=== PATIENT | male | born 1955 | race Hispanic/Latino ===

== ENCOUNTER 2021-11-22 18:19 | Inpatient (IN) | payer OTHER ==
[~2021-11-22] VITALS: Ht 172.7 cm; Wt 92.9 kg
[2021-11-22] MEDS ORDERED: [UNRECOGNIZED DRUG - OTHER] IV ONE (18:30)
[2021-11-22 18:46] LABS: APPEARANCE,URINE Cloudy (CLEAR); BILIRUBIN,URINE Small (NEGATIVE); COLOR,URINE Dark Yellow (YELLOW); GLUCOSE, URINE (UA) Negative (NEGATIVE); KETONES,URINE Trace mg/dL (NEGATIVE); LEUKOCYTE ESTERASE ,URINE Trace (NEGATIVE); NITRATE,URINE Negative (NEGATIVE); OCCULT BLOOD,URINE Negative (NEGATIVE); PH,URINE 5.5 (5.0-8.0); PROTEIN,URINE POS 2+ mg/dL (NEGATIVE)
[2021-11-22] MEDS ORDERED: VANCOMYCIN 1G VIAL IVPB ONE (19:00)
[2021-11-22] MEDS ORDERED: CEFTRIAXONE 1G VIAL IVP ONE (19:00)
[2021-11-22 19:01] LABS: BASOPHILS % (AUTO) 0.2 % (0.0-5.0); EOSINOPHILS % (AUTO) 0.2 % (0.0-8.0); LYMPHOCYTES % (AUTO) 4.8 % (21.0-51.0); MEAN CORPUSCULAR HEMOGLOBIN 30.8 pg (27.0-33.0); MEAN CORPUSCULAR HGB CONC 33.4 g/dL (32.0-36.0); MEAN CORPUSCULAR VOLUME 92.2 fL (79-99); MONOCYTES % (AUTO) 3.5 % (3.0-13.0); NEUTROPHILS % (AUTO) 88.3 % (40.0-77.0); PLATELET COUNT (AUTO) 131 K/uL (130-400); RED BLOOD CELL COUNT(AUTO) 4.12 MIL/uL (4.50-6.20); RED CELL DISTRIBUTION WIDTH 12.5 % (11.0-15.5); WHITE BLOOD COUNT (AUTO) 4.3 K/uL (4.8-10.8)
[2021-11-22] MEDS ORDERED: 0.9%NACL 1000ML 2,000 ML IV ONE (19:17)
[2021-11-22] MEDS ORDERED: 0.9%NACL 1000ML 1,000 ML IV ONE (19:18)
[2021-11-22 19:19] LABS: BACTERIA,URINE Few /HPF (None Seen); RBC,URINE 0-1 /HPF (0-1)
[2021-11-22 19:20] LABS: SQUAMOUS EPITHELIAL CELL,UR Few /HPF (0-2)
[2021-11-22 19:21] LABS: MUCUS,URINE Rare LPF (None Seen); OTHER CASTS, URINE WBC CASTS 1+ /LPF (None Seen)
[2021-11-22 19:28] LABS: B-TYPE NATRIURETIC PEPTIDE 82 pg/mL (0-100)
[2021-11-22 19:30] LABS: ALBUMIN 2.2 g/dL (3.5-5.0); BILIRUBIN,TOTAL 0.5 mg/dL (0.2-1.0); CREATININE 1.8 mg/dL (0.5-1.5); TOTAL PROTEIN, SERUM 6.1 g/dL (6.0-8.3)
[2021-11-22] MEDS ORDERED: ACETAMINOPHEN 500 MG TABLET PO ONE (19:30)
[2021-11-22 19:31] LABS: POTASSIUM 2.9 mmol/L (3.5-5.1)
[2021-11-22] MEDS ORDERED: CEFTRIAXONE 1G VIAL ONE (19:47)
[2021-11-22] MEDS ORDERED: VANCOMYCIN 1G/250ML KIT 0 ML IV ONE (19:47)
[2021-11-22] MEDS ORDERED: POTASSIUM BICARB/CIT AC 25 MEQ TABLET.EFF ONE (19:47)
[2021-11-22] MEDS ORDERED: 0.9% NACL 250ML 250 ML ONE (19:48)
[2021-11-22] MEDS ORDERED: ZOSYN 3.375GM+NS 50ML 50 ML ONE (19:56)
[2021-11-22] MEDS ORDERED: ACETAMINOPHEN 500 MG TABLET ONE (19:57)
[2021-11-22] MEDS ORDERED: MIDODRINE HCL 5 MG TABLET ONE (19:57)
[2021-11-22] MEDS ORDERED: MIDODRINE HCL 5 MG TABLET PO SCH (20:00)
[2021-11-22] MEDS ORDERED: ZOSYN 3.375GM +NS 50ML IV SCH (20:00)
[2021-11-22] MEDS ORDERED: POTASSIUM BICARB/CIT AC 25 MEQ TABLET.EFF PO ONE (20:00)
[2021-11-22] MEDS ORDERED: NOREPINEPHRIN 4MG/NS 250ML 250 ML IV SCH (22:00)
[2021-11-22] MEDS ORDERED: VANCOMYCIN 1G/250ML KIT 250 ML IV ONE (22:26)
[2021-11-23] VITALS (7 sets, daily range): BP systolic 111–149; BP diastolic 68–87
[2021-11-23] MEDS ORDERED: VANCOMYCIN PROTOCOL PER PHARMACY IV SCH
[2021-11-23] MEDS ORDERED: ZOSYN 3.375GM +NS 50ML IV SCH
[2021-11-23] MEDS: 0.9%NACL 1000ML 1,000 ML IV SCH ×4 (00:14→17:45)
[2021-11-23] MEDS ORDERED: IOHEXOL 350 MG/ML 100ML INFUS..BTL IV ONE ×2 (03:33→18:27)
[2021-11-23 05:16] LABS: BASOPHILS % (AUTO) 0.6 % (0.0-5.0); HEMATOCRIT 36.3 % (42-54); MEAN CORPUSCULAR HGB CONC 34.4 g/dL (32.0-36.0); MEAN CORPUSCULAR VOLUME 92.8 fL (79-99); MONOCYTES % (AUTO) 11.4 % (3.0-13.0); NEUTROPHILS % (AUTO) 78.7 % (40.0-77.0); PLATELET COUNT (AUTO) 135 K/uL (130-400); RED BLOOD CELL COUNT(AUTO) 3.91 MIL/uL (4.50-6.20); RED CELL DISTRIBUTION WIDTH 12.8 % (11.0-15.5)
[2021-11-23 05:29] LABS: ALBUMIN 1.8 g/dL (3.5-5.0); BILIRUBIN,TOTAL 0.6 mg/dL (0.2-1.0); CREATININE 1.3 mg/dL (0.5-1.5); MAGNESIUM 1.4 mg/dL (1.80-2.40); PHOSPHORUS 2.1 mg/dL (2.5-4.9); POTASSIUM 3.1 mmol/L (3.5-5.1); TOTAL PROTEIN, SERUM 5.7 g/dL (6.0-8.3)
[2021-11-23 05:41] LABS: CRP QUANTITATIVE 250.7 mg/L (0.00-9.0)
[2021-11-23] MEDS ORDERED: POTASSIUM BICARB/CIT AC 25 MEQ TABLET.EFF ONE (06:19)
[2021-11-23] MEDS ORDERED: MAGNESIUM 2GM PREMIX 50ML 50 ML IV ONE (06:27)
[2021-11-23] MEDS ORDERED: LIDOCAINE HCL-MPF 1% 2ML VIAL IV PRN ×2 (06:30)
[2021-11-23] MEDS ORDERED: POTASSIUM CHLORIDE 10% ELIXIR 20 MEQ/15 ML UDCUP PO PRN (06:30)
[2021-11-23] MEDS ORDERED: MAGNESIUM 2GM PREMIX 50ML 50 ML IV PRN (06:30)
[2021-11-23] MEDS ORDERED: POTASSIUM CHLORIDE 20MEQ/100ML 100 ML IV PRN (06:30)
[2021-11-23] MEDS ORDERED: POTASSIUM BICARB/CIT AC 25 MEQ TABLET.EFF PO ONE (06:30)
[2021-11-23] MEDS: ZOSYN 3.375GM +NS 50ML IV SCH ×2 (06:57→12:35)
[2021-11-23 07:06] LABS: ERYTHROCYTE SEDIMENTATION RATE 50 MM/HR (0-20)
[2021-11-23] MEDS: VANCOMYCIN 750MG VIAL IVPB SCH ×2 (08:00→21:37)
[2021-11-23] MEDS ORDERED: 0.9% NACL 250ML 250 ML IV SCH (08:00)
[2021-11-23] MEDS ORDERED: MIDODRINE HCL 5 MG TABLET PO SCH (11:30)
[2021-11-23 17:31] LABS: BASOPHILS % (AUTO) 0.9 % (0.0-5.0); HEMATOCRIT 37.8 % (42-54); LYMPHOCYTES % (AUTO) 9.6 % (21.0-51.0); MEAN CORPUSCULAR HEMOGLOBIN 31.6 pg (27.0-33.0); MEAN CORPUSCULAR HGB CONC 34.4 g/dL (32.0-36.0); MEAN CORPUSCULAR VOLUME 91.7 fL (79-99); MONOCYTES % (AUTO) 7.2 % (3.0-13.0); NEUTROPHILS % (AUTO) 81.7 % (40.0-77.0); PLATELET COUNT (AUTO) 124 K/uL (130-400); RED BLOOD CELL COUNT(AUTO) 4.12 MIL/uL (4.50-6.20); RED CELL DISTRIBUTION WIDTH 12.9 % (11.0-15.5); WHITE BLOOD COUNT (AUTO) 5.4 K/uL (4.8-10.8)
[2021-11-23 17:41] LABS: CREATININE 0.8 mg/dL (0.5-1.5); POTASSIUM 3.1 mmol/L (3.5-5.1)
[2021-11-23 17:46] LABS: ALBUMIN 1.7 g/dL (3.5-5.0); BILIRUBIN,TOTAL 0.7 mg/dL (0.2-1.0); MAGNESIUM 2.2 mg/dL (1.80-2.40); TOTAL PROTEIN, SERUM 5.6 g/dL (6.0-8.3)
[2021-11-23] MEDS: POTASSIUM CHLORIDE 20MEQ/100ML 100 ML IV PRN (19:09)
[2021-11-23] MEDS ORDERED: 0.9%NACL 100ML 100 ML ONE (20:14)
[2021-11-23] MEDS: MEROPENEM 1 GM VIAL IVP SCH (20:18)
[2021-11-23] MEDS ORDERED: ONDANSETRON 4MG INJ IVP PRN (20:30)
[2021-11-23] MEDS: ACETAMINOPHEN 325 MG TAB PO PRN (20:35)
[2021-11-24] VITALS (20 sets, daily range): BP systolic 92–174; BP diastolic 47–110
[2021-11-24] MEDS: 0.9%NACL 1000ML 1,000 ML IV SCH ×2 (00:36→14:45)
[2021-11-24] MEDS: MEROPENEM 1 GM VIAL IVP SCH ×3 (03:03→20:58)
[2021-11-24 07:42] LABS: BASOPHILS % (AUTO) 0.6 % (0.0-5.0); HEMATOCRIT 34.5 % (42-54); MEAN CORPUSCULAR HEMOGLOBIN 30.9 pg (27.0-33.0); MEAN CORPUSCULAR HGB CONC 33.6 g/dL (32.0-36.0); MEAN CORPUSCULAR VOLUME 91.8 fL (79-99); MONOCYTES % (AUTO) 5.2 % (3.0-13.0); NEUTROPHILS % (AUTO) 80.9 % (40.0-77.0); PLATELET COUNT (AUTO) 128 K/uL (130-400); RED BLOOD CELL COUNT(AUTO) 3.76 MIL/uL (4.50-6.20); WHITE BLOOD COUNT (AUTO) 6.8 K/uL (4.8-10.8)
[2021-11-24 08:12] LABS: ALBUMIN 1.6 g/dL (3.5-5.0); BILIRUBIN,TOTAL 0.8 mg/dL (0.2-1.0); CREATININE 0.6 mg/dL (0.5-1.5); TOTAL PROTEIN, SERUM 5.5 g/dL (6.0-8.3)
[2021-11-24 08:33] LABS: POTASSIUM 2.6 mmol/L (3.5-5.1)
[2021-11-24] MEDS: POTASSIUM CHLORIDE 20MEQ/100ML 100 ML IV PRN (08:37)
[2021-11-24] MEDS ORDERED: 0.9% NACL 250ML 250 ML IV SCH (09:00)
[2021-11-24] MEDS: VANCOMYCIN 750MG VIAL IVPB SCH ×2 (09:07→16:43)
[2021-11-24] MEDS: ACETAMINOPHEN 325 MG TAB PO PRN (09:47)
[2021-11-24] MEDS ORDERED: ACETAMINOPHEN 325 MG TAB PO PRN (10:00)
[2021-11-24] MEDS ORDERED: ONDANSETRON 4MG INJ IVP PRN (11:00)
[2021-11-24] MEDS: KCL 20 MEQ ERTAB PO PRN ×3 (11:13→16:42)
[2021-11-24] MEDS ORDERED: POTASSIUM CHLORIDE 10% ELIXIR 20 MEQ/15 ML UDCUP PO ONE (12:30)
[2021-11-25] VITALS: BP 138/73
[2021-11-25] MEDS: VANCOMYCIN 750MG VIAL IVPB SCH ×2 (01:01→08:44)
[2021-11-25 04:00] VITALS: BP 149/91
[2021-11-25] MEDS: MEROPENEM 1 GM VIAL IVP SCH ×2 (04:05→12:24)
[2021-11-25 04:34] LABS: HEMATOCRIT 31.9 % (42-54); MEAN CORPUSCULAR HGB CONC 35.7 g/dL (32.0-36.0); MEAN CORPUSCULAR VOLUME 89.6 fL (79-99); RED BLOOD CELL COUNT(AUTO) 3.56 MIL/uL (4.50-6.20); RED CELL DISTRIBUTION WIDTH 13.1 % (11.0-15.5); WHITE BLOOD COUNT (AUTO) 6.9 K/uL (4.8-10.8)
[2021-11-25 04:55] LABS: CREATININE 0.6 mg/dL (0.5-1.5)
[2021-11-25 05:10] LABS: POTASSIUM 2.8 mmol/L (3.5-5.1)
[2021-11-25] MEDS: KCL 20 MEQ ERTAB PO PRN ×4 (05:16→21:17)
[2021-11-25 07:00] VITALS: BP 149/94
[2021-11-25] MEDS: VANCOMYCIN 1.25 GM/250 ML BAG 250 ML IV SCH ×2 (09:00→21:00)
[2021-11-25 12:00] VITALS: BP 158/99
[2021-11-25] MEDS: 0.9%NACL 1000ML 1,000 ML IV SCH (12:25)
[2021-11-25] MEDS: HYDROMORPHONE 0.5 MG SYG (0.5MG/0.5ML) IVP PRN (15:24)
[2021-11-25 15:30] VITALS: BP 163/95
[2021-11-25] MEDS ORDERED: KETOROLAC 15MG/ML VIAL (15MG/ML) IV ONE (17:30)
[2021-11-25 18:32] LABS: CREATININE 0.4 mg/dL (0.5-1.5); POTASSIUM 3.2 mmol/L (3.5-5.1)
[2021-11-25] MEDS ORDERED: KETOROLAC 15MG/ML VIAL (15MG/ML) ONE (20:46)
[2021-11-25 21:40] VITALS: BP 161/98
[2021-11-26] MEDS: KCL 20 MEQ ERTAB PO PRN ×2 (00:14→03:31)
[2021-11-26] MEDS: HYDROMORPHONE 0.5 MG SYG (0.5MG/0.5ML) IVP PRN ×2 (00:15→11:21)
[2021-11-26 00:27] VITALS: BP 153/80
[2021-11-26] MEDS: 0.9%NACL 1000ML 1,000 ML IV SCH (01:20)
[2021-11-26 05:23] VITALS: BP 148/81
[2021-11-26 05:46] LABS: HEMATOCRIT 35.5 % (42-54); MEAN CORPUSCULAR HEMOGLOBIN 31.9 pg (27.0-33.0); MEAN CORPUSCULAR HGB CONC 35.5 g/dL (32.0-36.0); MEAN CORPUSCULAR VOLUME 89.9 fL (79-99); RED BLOOD CELL COUNT(AUTO) 3.95 MIL/uL (4.50-6.20); RED CELL DISTRIBUTION WIDTH 13.1 % (11.0-15.5); WHITE BLOOD COUNT (AUTO) 8.8 K/uL (4.8-10.8)
[2021-11-26 06:00] LABS: CREATININE 0.5 mg/dL (0.5-1.5); POTASSIUM 3.4 mmol/L (3.5-5.1)
[2021-11-26 08:00] VITALS: BP 164/97
[2021-11-26] MEDS ORDERED: ARTIFICAL TEARS SOL 15 ML OU PRN (08:30)
[2021-11-26] MEDS: VANCOMYCIN 1.25 GM/250 ML BAG 250 ML IV SCH (09:32)
[2021-11-26 12:00] VITALS: BP 143/86
[2021-11-26 16:00] VITALS: BP 143/86
== END 2021-11-26 17:40 | disposition short-term general hospital (02) | DRG 559 ==
LOC: EDH 18:19 → EDHIP 11-23 17:18 → 2CH 11-23 21:57 → 2DH 11-25 10:06 → 3AH 11-25 16:03
PROVIDERS: ADMIT Internal Medicine; ATTEND Internal Medicine
DX: T84.59XA Infection and inflammatory reaction due to other internal joint prosthesis, initial encounter (principal); A41.02 Sepsis due to Methicillin resistant Staphylococcus aureus; E43 Unspecified severe protein-calorie malnutrition; R65.21 Severe sepsis with septic shock; N39.0 Urinary tract infection, site not specified; G82.20 Paraplegia, unspecified; N17.9 Acute kidney failure, unspecified; K81.0 Acute cholecystitis; L02.416 Cutaneous abscess of left lower limb; Z20.822 Contact with and (suspected) exposure to COVID-19; E87.6 Hypokalemia; E86.0 Dehydration; E83.42 Hypomagnesemia; Z96.642 Presence of left artificial hip joint; G89.4 Chronic pain syndrome; M19.90 Unspecified osteoarthritis, unspecified site; Y83.8 Other surgical procedures as the cause of abnormal reaction of the patient, or of later complication, without mention of misadventure at the time of the procedure; E66.9 Obesity, unspecified; K59.00 Constipation, unspecified; Z74.01 Bed confinement status; Z68.31 Body mass index [BMI] 31.0-31.9, adult; Y92.89 Other specified places as the place of occurrence of the external cause
CPT/HCPCS: 36415; 51702; 71045; 71275; 73702; 74176; 74177; 76705; 80048; 80053; 80202; 81001; 82550; 82948; 83605; 83735; 83880; 84100; 84145; 84484; 85025; 85027; 85378; 85651; 86140; 87040; 87077; 87088; 87186; 87635; 87804; 87880; 93005; 99291; C9803; G0378; J0696; J1170; J1885; J2185; J2405; J2543; J3370; J3475; J3480; J3490; J7030; J7050; Q9967

== ENCOUNTER 2023-10-08 23:10 | Emergency (ER) | payer OTHER ==
[~2023-10-08] VITALS: Ht 172.7 cm; Wt 95.3 kg
[~2023-10-08 23:10] MED LIST: CEPH500B PO; PHEN-847 PO
[2023-10-08 23:11] VITALS: O2SAT 96
[2023-10-08 23:12] VITALS: BP 136/67; PULSE 82; RESP 16
== END 2023-10-09 02:00 | disposition home or self-care (01) ==
LOC: EDH 23:10
DX: T83.018A Breakdown (mechanical) of other urinary catheter, initial encounter (principal); Z79.899 Other long term (current) drug therapy; Z98.890 Other specified postprocedural states
CPT/HCPCS: 51702; 93005

== ENCOUNTER 2023-11-07 09:19 | Emergency (ER) | payer OTHER ==
[~2023-11-07] VITALS: Ht 170.2 cm; Wt 90.7 kg
[2023-11-07] MEDS: 0.9%NACL 1000ML 1,000 ML IV ONE (10:36)
[2023-11-07 11:02] LABS: APPEARANCE,URINE CLOUDY (CLEAR); BILIRUBIN,URINE NEGATIVE (NEGATIVE); COLOR,URINE YELLOW (YELLOW); GLUCOSE, URINE (UA) NEGATIVE (NEGATIVE); KETONES,URINE NEGATIVE (NEGATIVE); LEUKOCYTE ESTERASE ,URINE 500 Leu/uL (NEGATIVE); NITRATE,URINE 2+ (NEGATIVE); OCCULT BLOOD,URINE MODERATE (NEGATIVE); PH,URINE 5.5 (5.0-8.0); PROTEIN,URINE 20 mg/dL (NEGATIVE); UROBILINOGEN,URINE 0.2 mg/dL (0.2-1.0)
[2023-11-07 11:12] LABS: BASOPHILS # (AUTO) 0.04 K/uL (0.00-0.20); BASOPHILS % (AUTO) 0.6 % (0.0-5.0); EOSINOPHILS # (AUTO) 0.25 K/uL (0.00-0.70); EOSINOPHILS % (AUTO) 3.5 % (0.0-8.0); HEMATOCRIT 42.1 % (42-54); IMMATURE GRANULOCYTE ABSOLUTE 0.04 K/uL (0-1); LYMPHOCYTES # (AUTO) 2.6 K/uL (1.0-4.8); LYMPHOCYTES % (AUTO) 36.7 % (21.0-51.0); MEAN CORPUSCULAR HEMOGLOBIN 30.9 pg (27.0-33.0); MEAN CORPUSCULAR HGB CONC 33.5 g/dL (32.0-36.0); MEAN CORPUSCULAR VOLUME 92.1 fL (79-99); MONOCYTES # (AUTO) 0.5 K/uL (0.1-1.0); MONOCYTES % (AUTO) 7.6 % (3.0-13.0); NEUTROPHILS # (AUTO) 3.6 K/uL (1.8-7.7); PLATELET COUNT (AUTO) 211 K/uL (130-400); RED BLOOD CELL COUNT(AUTO) 4.57 MIL/uL (4.50-6.20); RED CELL DISTRIBUTION WIDTH 14.1 % (11.0-15.5); WHITE BLOOD COUNT (AUTO) 7.1 K/uL (4.8-10.8)
[2023-11-07 11:19] LABS: CREATININE 0.8 mg/dL (0.5-1.3); POTASSIUM 4.4 mmol/L (3.5-5.1)
[2023-11-07 11:20] LABS: ADD UA MICROSCOPIC YES
[2023-11-07 11:24] LABS: ALBUMIN 3.1 g/dL (3.5-5.0); BILIRUBIN,TOTAL 0.3 mg/dL (0.2-1.0); TOTAL PROTEIN, SERUM 7.6 g/dL (6.0-8.3)
[2023-11-07 11:25] LABS: BACTERIA,URINE MOD /HPF (None Seen); MUCUS,URINE RARE LPF (None Seen); RBC,URINE 26-50 /HPF (0-1); WBC,URINE TNTC /HPF (0-1)
[2023-11-07] MEDS: CEFTRIAXONE 1G VIAL IVPB ONE (12:02)
[2023-11-07 12:04] VITALS: BP 138/83; PULSE 88; RESP 16; O2SAT 95
[2023-11-07] MEDS ORDERED: LEVO750T68 PO (12:34)
== END 2023-11-07 13:37 | disposition home or self-care (01) ==
LOC: EDH 09:19
DX: T83.091A Other mechanical complication of indwelling urethral catheter, initial encounter (principal); N39.0 Urinary tract infection, site not specified; Y82.9 Unspecified medical devices associated with adverse incidents; Y92.89 Other specified places as the place of occurrence of the external cause
CPT/HCPCS: 99285; 96365; 76705; 96361; 80053; 85025; 87077; 87088; 87186; 81001; 36415; J7030; J0696

== ENCOUNTER 2023-11-29 15:58 | Emergency (ER) | payer OTHER ==
[~2023-11-29] VITALS: Ht 172.7 cm; Wt 90.7 kg
[~2023-11-29 15:58] MED LIST changes: -CEPH500B PO; +LEVO750T68 PO; -PHEN-847 PO
[2023-11-29 16:49] VITALS: BP 107/65; PULSE 76; RESP 19; O2SAT 95
[2023-11-29 17:09] LABS: BASOPHILS # (AUTO) 0.03 K/uL (0.00-0.20); BASOPHILS % (AUTO) 0.5 % (0.0-5.0); EOSINOPHILS # (AUTO) 0.24 K/uL (0.00-0.70); EOSINOPHILS % (AUTO) 4.2 % (0.0-8.0); HEMATOCRIT 43.5 % (42-54); IMMATURE GRANULOCYTE ABSOLUTE 0.02 K/uL (0-1); LYMPHOCYTES # (AUTO) 2.5 K/uL (1.0-4.8); LYMPHOCYTES % (AUTO) 43.3 % (21.0-51.0); MEAN CORPUSCULAR HGB CONC 33.3 g/dL (32.0-36.0); MONOCYTES # (AUTO) 0.5 K/uL (0.1-1.0); MONOCYTES % (AUTO) 8.9 % (3.0-13.0); NEUTROPHILS # (AUTO) 2.4 K/uL (1.8-7.7); NEUTROPHILS % (AUTO) 42.7 % (40.0-77.0); PLATELET COUNT (AUTO) 167 K/uL (130-400); RED BLOOD CELL COUNT(AUTO) 4.53 MIL/uL (4.50-6.20); RED CELL DISTRIBUTION WIDTH 13.7 % (11.0-15.5); WHITE BLOOD COUNT (AUTO) 5.7 K/uL (4.8-10.8)
[2023-11-29 17:22] LABS: CREATININE 0.9 mg/dL (0.5-1.3); POTASSIUM 4.2 mmol/L (3.5-5.1)
[2023-11-29] MEDS ORDERED: CEPH500B PO (17:27)
[2023-11-29] MEDS: ONDANSETRON 4MG INJ ONE (17:29)
[2023-11-29] MEDS: ONDANSETRON 4MG INJ IVP ONE (17:29)
[2023-11-29] MEDS: 0.9%NACL 1000ML 1,000 ML IV ONE (17:29)
[2023-11-29] MEDS: CEFTRIAXONE 2GM VIAL IVPB ONE (17:29)
[2023-11-29 17:35] LABS: ADD UA MICROSCOPIC YES; APPEARANCE,URINE CLOUDY (CLEAR); BILIRUBIN,URINE NEGATIVE (NEGATIVE); COLOR,URINE YELLOW (YELLOW); GLUCOSE, URINE (UA) NEGATIVE (NEGATIVE); KETONES,URINE NEGATIVE (NEGATIVE); LEUKOCYTE ESTERASE ,URINE 500 Leu/uL (NEGATIVE); NITRATE,URINE NEGATIVE (NEGATIVE); OCCULT BLOOD,URINE LARGE (NEGATIVE); PH,URINE 5.5 (5.0-8.0); PROTEIN,URINE 70 mg/dL (NEGATIVE); UROBILINOGEN,URINE 0.2 mg/dL (0.2-1.0)
[2023-11-29 17:39] LABS: BACTERIA,URINE MOD /HPF (None Seen); MUCUS,URINE RARE LPF (None Seen); RBC,URINE TNTC /HPF (0-1); WBC,URINE TNTC /HPF (0-1)
[2023-11-30] MEDS ORDERED: CEPH500T PO (08:47)
== END 2023-11-29 18:31 | disposition home or self-care (01) ==
LOC: EDH 15:58
DX: N39.0 Urinary tract infection, site not specified (principal); Z87.440 Personal history of urinary (tract) infections; Z98.890 Other specified postprocedural states
CPT/HCPCS: 99284; 51705; 96365; 96375; 80048; 85025; 87077 ×2; 87088; 87186 ×2; 83605; 81001; 36415; 87070; J0696; J2405

== ENCOUNTER 2023-11-29 21:46 | Emergency (ER) | payer OTHER ==
[~2023-11-29 21:46] MED LIST changes: +CEPH500B PO
[2023-11-30 02:21] VITALS: BP 110/56; PULSE 80; RESP 20; O2SAT 94
[2023-11-30] MEDS ORDERED: CEPH500T PO (08:47)
== END 2023-11-30 02:25 | disposition home or self-care (01) ==
LOC: EDH 21:46
DX: R33.9 Retention of urine, unspecified (principal); M19.90 Unspecified osteoarthritis, unspecified site
CPT/HCPCS: 74176

== ENCOUNTER 2023-12-20 10:05 | Emergency (ER) | payer OTHER ==
[~2023-12-20] VITALS: Ht 175.3 cm; Wt 95.3 kg
[~2023-12-20 10:05] MED LIST changes: -CEPH500B PO; +CEPH500T PO
[2023-12-20] MEDS ORDERED: SULF1TAB42 PO (11:27)
[2023-12-20 11:35] VITALS: BP 112/82; PULSE 79; RESP 18; O2SAT 96
== END 2023-12-20 13:36 | disposition home or self-care (01) ==
LOC: EDH 10:05
DX: T83.098A Other mechanical complication of other urinary catheter, initial encounter (principal); Z79.899 Other long term (current) drug therapy; Z98.890 Other specified postprocedural states; X58.XXXA Exposure to other specified factors, initial encounter; Y93.89 Activity, other specified; Y92.89 Other specified places as the place of occurrence of the external cause; Y99.8 Other external cause status

== ENCOUNTER 2023-12-21 09:53 | Emergency (ER) | payer OTHER ==
[~2023-12-21] VITALS: Ht 180.3 cm; Wt 95.3 kg
[~2023-12-21 09:53] MED LIST changes: +SULF1TAB42 PO
[2023-12-21 11:38] LABS: BASOPHILS # (AUTO) 0.03 K/uL (0.00-0.20); BASOPHILS % (AUTO) 0.5 % (0.0-5.0); EOSINOPHILS # (AUTO) 0.23 K/uL (0.00-0.70); EOSINOPHILS % (AUTO) 3.9 % (0.0-8.0); HEMATOCRIT 42.6 % (42-54); IMMATURE GRANULOCYTE ABSOLUTE 0.02 K/uL (0-1); LYMPHOCYTES # (AUTO) 2.6 K/uL (1.0-4.8); LYMPHOCYTES % (AUTO) 43.8 % (21.0-51.0); MEAN CORPUSCULAR HEMOGLOBIN 32.3 pg (27.0-33.0); MEAN CORPUSCULAR HGB CONC 33.1 g/dL (32.0-36.0); MEAN CORPUSCULAR VOLUME 97.7 fL (79-99); MONOCYTES # (AUTO) 0.4 K/uL (0.1-1.0); MONOCYTES % (AUTO) 6.6 % (3.0-13.0); NEUTROPHILS # (AUTO) 2.7 K/uL (1.8-7.7); NEUTROPHILS % (AUTO) 44.9 % (40.0-77.0); PLATELET COUNT (AUTO) 151 K/uL (130-400); RED BLOOD CELL COUNT(AUTO) 4.36 MIL/uL (4.50-6.20); RED CELL DISTRIBUTION WIDTH 13.2 % (11.0-15.5); WHITE BLOOD COUNT (AUTO) 5.9 K/uL (4.8-10.8)
[2023-12-21 11:47] LABS: CREATININE 0.7 mg/dL (0.5-1.3); POTASSIUM 4.5 mmol/L (3.5-5.1)
[2023-12-21 13:45] VITALS: BP 112/52; PULSE 64; RESP 18; O2SAT 96
== END 2023-12-21 16:48 | disposition home or self-care (01) ==
LOC: EDH 09:53
DX: T85.618A Breakdown (mechanical) of other specified internal prosthetic devices, implants and grafts, initial encounter (principal); M19.90 Unspecified osteoarthritis, unspecified site; Y83.9 Surgical procedure, unspecified as the cause of abnormal reaction of the patient, or of later complication, without mention of misadventure at the time of the procedure; Y92.89 Other specified places as the place of occurrence of the external cause
CPT/HCPCS: 36415; 51702; 74176; 80048; 85025

== ENCOUNTER 2025-03-15 23:48 | Emergency (ER) | payer OTHER ==
[~2025-03-15] VITALS: Ht 172.7 cm; Wt 104.3 kg
--- NOTE | 2025-03-16 00:30 | ERN ---
General Chief Complaint: Knee Injury/Swelling Stated Complaint: R KNEE PAIN S/P FALL Time Seen by MD: 00:03 Source: patient History of Present Illness Initial Comments Patient is a 69-year-old male doing home physical therapy for hip replacement surgery when he fell forward onto his bilateral knees. He felt he tweaked his right knee. It it hurt quite a bit and he comes in to rule out a fracture. 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 He also had left hip replacement surgery that did not heal and for awhile he was bed-bound with out a hip on his left side at all. And total patient has probably spent the last 2-3 years in bed not walking. Allergies: Coded Allergies: No Known Allergies (Unverified Allergy, Unknown, 11/22/21) Home Meds Active Scripts Sulfamethoxazole/Trimethoprim (Bactrim Ds Tablet) 800 Mg-160 Mg Tablet, 1 TAB PO BID for 7 Days, #14 TAB 0 Refills Prov:SAIGE JOSÉ 12/20/23 Cephalexin (Cephalexin) 500 Mg Tablet, 500 MG PO QID for 10 Days, #40 TAB 0 Refills Prov:DENZEL VANEGAS Sr., MD 11/30/23 Levofloxacin (Levaquin 750Mg Tabs) 750 Mg Tablet, 750 MG PO DAILY for 7 Days, #7 TAB 0 Refills Prov:LISSETH AVILA 11/07/23 Past Medical History Past Medical History: Arthritis Medical History Other: OSTEOARTHIRITIS OF HIP Past Surgical History: Other Surgical History Other: L HIP Family History Family History: Negative Social History Social History: Negative ROS Dictation Review of systems is negative. Physical Exam Extremities Comment Patient's right knee is negative for anterior or posterior drawer sign. Both the medial and lateral collateral ligaments are intact. Patient's knee is not swollen. There was only a little bit of tenderness on the medial inferior portion of the knee. MDM I have ordered plain films of the right knee. Plain films show a tibial plateau fracture. I discussed the patient's care with the orthopedic surgeon Dr. Fallon. He recommends a long posterior splint and following up in his clinic where they will most likely put the patient in a cast. ED Course Orders Procedure Category Date Status Time Knee 3vws Rt RAD 03/16/25 Resulted 00:03 Vital Signs Date Time Temp Pulse Resp B/P (MAP) Pulse Ox O2 Delivery O2 Flow Rate FiO2 03/16/25 00:16 98.4 10 18 122/77 97 Room Air* 0 21 03/16/25 00:16 95 18 122/77 98 Room Air* 0 21 03/15/25 23:49 99.1 91 18 107/66 95 Room Air 2.0 DX & DISP Disposition: Discharge Departure Impression: Primary Impression: Tibial plateau fracture, right Condition: Stable Referrals: EFFIE FRANCO (PCP) BLANCO FALLON MD, GORDON K MD Mar 16, 2025 00:30
--- NOTE | 2025-03-16 01:21 | HMCIMG ---
EXAM: CR Right Knee, 3 views. CLINICAL HISTORY: Trauma. COMPARISON: None provided. FINDINGS: Nondisplaced comminuted acute fracture of the proximal metaepiphysis of the tibia with extension of the fracture line towards the medial aspect of the lateral tibial plateau and intercondylar portion of the tibia. Nondisplaced acute transverse fracture at the proximal fibular metaphysis. Moderate suprapatellar effusion is evident. Diffuse soft tissue swelling. IMPRESSION: Nondisplaced comminuted acute fracture of the proximal metaepiphysis of the tibia with extension of the fracture line towards the medial aspect of the lateral tibial plateau and intercondylar portion of the tibia. Nondisplaced acute transverse fracture at the proximal fibular metaphysis. Moderate suprapatellar effusion is evident. Critical access hospital
[2025-03-16 01:42] VITALS: BP 119/76; PULSE 81; RESP 17; TEMP 98.4; O2SAT 96
== END 2025-03-16 04:35 | disposition home or self-care (01) ==
LOC: EDH 23:48
DX: S82.254A Nondisplaced comminuted fracture of shaft of right tibia, initial encounter for closed fracture (principal); Z79.899 Other long term (current) drug therapy; Z98.890 Other specified postprocedural states; W18.39XA Other fall on same level, initial encounter; Y93.89 Activity, other specified; Y92.89 Other specified places as the place of occurrence of the external cause; Y99.8 Other external cause status
CPT/HCPCS: 73562; 99284